=== PATIENT | male | born 1975 | race Caucasian/White ===

== ENCOUNTER 2016-12-19 09:45 | Emergency (ER) | payer OTHER ==
--- NOTE | 2016-12-19 11:01 | DIAGNOSTIC IMAGING REPORT ---
PROCEDURE: XR ANKLE 3 OR 4 VIEWS - RIGHT INDICATION: TRAUMA/INJURY TECHNIQUE: Four views. COMPARISON: None. FINDINGS: There is marked soft tissue swelling over the lateral malleolus. Osseous structures and joint spaces are normal. No evidence of fracture IMPRESSION: 1. Marked soft tissue swelling. 2. Otherwise negative right ankle.
--- NOTE | 2016-12-19 11:37 | ED ORDER SUMMARY ---
..... Patient: BETSY GUPTA OrderSheet [facility] VisitID: [id number] [address] [place] [address] 41y, M Registration Date/Time: 12/19/2016 ORDER SHEET Weight: 98.8 kg (stated) Allergies: No Known Drug Allergy GENERAL ORDERS: Ankle 3 or 4V Right Urgent (10:13 12/19/2016 Nisha Richardson verbal order read back to Lorraine CORNELIUS) (Ack 10:19 Tosin) (11:42 Carrie Higgins.NKinza) Splint (LE) (Right) (Air Splint) (11:23 12/19/2016 Lorraine CORNELIUS) (11:44 PWeiler ER Tech1) Crutches (11:24 12/19/2016 Lorraine CORNELIUS) (11:44 PWeiler ER Tech1) MEDICATION ORDERS: Naprosyn PO 500 mg (NOW) (11:36 12/19/2016 Lorraine CORNELIUS) (11:54 Carrie R.NKinza) IV FLUIDS: ORDER SHEET NOTES: [Electronically signed by Radha Manzo MD (23:48 12/20/2016)] [Electronically signed by John Emery R.N. (07:05 12/21/2016)] [Electronically locked/signed by John Emery R.N. (07:05 12/21/2016)]
--- NOTE | 2016-12-19 11:37 | ED NURSING NOTES ---
Clinical Report - Nurses [facility] [place] [address] 12/19/2016 9:54 [id number] Triage time 10:Dec 19 2016. Acuity: LEVEL 3. Chief Complaint: INJURY TO RIGHT ANKLE. Alert. ALEXANDER COMA SCORE: Alexander Coma Scale: 15- eyes open spontaneously (4); best verbal response- oriented x 4 (5); best motor response- obeys commands (6). --10:10 John Emery R.N. 10:01 12/19/16. BP: 127/95. HR: 74. RR: 16. O2 saturation: 98%. Temp: 98.7 F. Pain level now: 12/20. --10:10 John Emery R.N. Weight: 98.8 kg stated. Height/Length: 73 inches Per Patient. BMI: 28.7. --10:05 John Emery R.N. Medications None. --07:05 John Emery R.N. Allergies No Known Drug Allergy. --07:05 John Emery R.N. History Arrived by private vehicle. Historian: patient. Accompanied by family. Primary physician (Cpt. Steffanie). ( (R) Ankle pain/trauma. Pt states that he was jogging and looked around and in so doing, twisted his ankle.). The patient has had trouble walking. PAST MEDICAL HX: Tetanus status: up-to-date. Immunizations: up-to-date. SOCIAL HX: Never smoker. No alcohol use or drug use. No infectious disease exposure. ABUSE ASSESSMENT: No report of abuse. FALL RISK ASSESSMENT: Fall risk assessment completed. No fall risk identified. NUTRITIONAL RISK ASSESSMENT: The nutritional risk assessment revealed no deficiencies. LEARNING NEEDS ASSESSMENT: The learning needs assessment revealed no barriers. SKIN INTEGRITY ASSESSMENT: Skin integrity risk assessment completed. No skin integrity risk identified. --10:10 John Emery R.N. PROBLEMS: no known problems. ADDITIONAL SURGERIES: The following entry was struck by Radha Manzo MD, 23:45 Reason - Misspelled <<STRICKEN ENTRY-- Varicele. --23:44 Radha Manzo MD --END STRIKE>>. Interventions ID band on patient. To treatment room. --10:10 John Emery R.N. PHYSICAL ASSESSMENT To room via wheelchair. GENERAL / NEURO / PSYCH: Oriented X 4. Appears in pain. EXTREMITIES: Limited ROM present. Capillary refill is less than 2 seconds in the extremities. Right ankle: tenderness and swelling. SKIN: Skin intact. Skin is warm and dry. --11:46 John Emery R.N. NURSING PROGRESS NOTES Cold pack applied to the right ankle. Patient identifiers checked. Call light placed in reach. Side rails up. Bed placed in lowest position. Brakes of bed on. Patient ready for evaluation- chart flagged and ED physician notified. --10:11 John Emery R.N. Stirrup air lower extremity splint applied to right ankle by tech. Distal pulses intact, sensation intact and motor within normal limits. --11:47 Wei Lira ER Tech1 11:45 12/19/2016 Naprosyn (Naproxen) PO Tablets 500 mg given. Allergies verified and confirmed 5 rights. --11:54 Saw Garcia R.N. 10:45 12/19/16. BP: 124/77. HR: 68. RR: 16. O2 saturation: 99% on room air. --11:59 Saw Garcia R.N. DISPOSITION / DISCHARGE Departure time: 1150. Condition at departure: unchanged and stable. No learning barriers present. Discharge instructions provided and reviewed with the patient. Reviewed warnings. Reviewed medication(s). Treatments reviewed. Patient verbalized understanding. Written instructions provided in [place]. The patient was discharged by the physician. He was discharged home and accompanied by poultry processor. He left the Emergency Department on crutches and via private vehicle. Kiln Charger driving. --11:57 Saw Garcia R.N. 11:15 12/19/16. BP: 134/90. HR: 66. RR: 16. O2 saturation: 100% on room air. Temp: 98.7 F (oral). Pain level now: 10/20. --11:57 Saw Garcia R.N. Locked/Released at 12/21/2016 7:05 by John Emery R.N.
--- NOTE | 2016-12-19 11:37 | ED CLINICAL REPORT ---
Clinical Report - Physicians/Mid Levels [facility] [address] [place] [address] 12/19/2016 9:54 [id number] Time Seen: 10:29. Arrived- By private vehicle. Historian- patient. HISTORY OF PRESENT ILLNESS Chief Complaint: Injury to the right ankle. The injury happened today. Occurred at work. The patient sustained a twisting injury. Patient is experiencing moderate pain. No other injury. REVIEW OF SYSTEMS The patient complains of pain on weight bearing. He has had swelling. No tingling, weakness, numbness, suspected foreign body or skin laceration. All systems otherwise negative, except as recorded above. PAST HISTORY Problems: no known problems. Additional Surgeries: Varicocele. SOCIAL HISTORY Never smoker. No alcohol use or drug use. ADDITIONAL NOTES The nursing notes have been reviewed. PHYSICAL EXAM Vital Signs: 12/19/2016 10:01 BP: 127/95. HR: 74. RR: 16. O2 saturation: 98%. Temp: 98.7 F. Pain level now: 710. Have been reviewed. Appearance: Alert. Oriented X3. No acute distress. Head: Head atraumatic. Eyes: Pupils equal, round and reactive to light. Eyes normal inspection. ENT: Nose normal. Neck: Normal inspection. CVS: Pulses normal. Respiratory: No respiratory distress. Back: ROM normal. Skin: Skin intact. Skin warm and dry. Extremities: Right ankle: mild tenderness and moderate swelling localized to the lateral ligaments. Limited ROM secondary to pain (diminished inversion and eversion). Neurovascular intact distally. No ligamentous laxity present. No joint effusion. No erythema, laceration, abrasion, ecchymosis or puncture wound. No foreign body or deformity. No foot injury. Foot and ankle exam otherwise negative. Extremities otherwise negative. Gait: Gait not tested due to pain. Neuro, Vascular and Tendons: Vascular status intact. Sensation intact. Motor intact. Tendon function intact. Neuro: No motor deficit. No sensory deficit. (grossly oriented.). LABS, X-RAYS, AND EKG Rt Ankle X-ray: No fracture. Normal alignment. No bony lesion, air in the soft tissue or foreign body. Joint spaces normal. Soft tissue swelling. Views: 3 view ankle series. Technique: good. The X-rays were independently viewed by me, interpreted by the radiologist and contemporaneously by me and discussed with the radiologist. Prior films were not available for comparison. Pulse Oximetry: 12/19/2016 10:01 O2 saturation: 98%. (FIO2 - room air). Interpretation: normal. PROGRESS AND PROCEDURES Splint Application: Air splint applied to right ankle. Splint applied by tech with direct supervision by me and the ED physician. Reassessed extremity following splint application. Neurovascular intact. Course of Care: Patient is given a dose of naproxen in the emergency department. X-ray of the right ankle was performed and found to be negative. Patient counseled in person regarding the patient's stable condition, test results, diagnosis and need for follow-up. Concerns were addressed. Old medical records reviewed. Disposition: Discharged. Condition: stable. CLINICAL IMPRESSION Sprain of the tibiofibular ligament of the right ankle. INSTRUCTIONS Apply ice for 20 minutes three times a day as needed and until better. Don't apply ice directly to skin and don't use while asleep. Use crutches as needed and until better. Wear air splint until better. You may walk and bear weight as tolerated (With restrictions: no running, weighted activities on ankle (front squats, back squats, deadlifts, etc), for 4 weeks or until symptom-free.). Warnings: GENERAL WARNINGS: Return or contact your physician immediately if your condition worsens or changes unexpectedly, if not improving as expected, or if other problems arise. Prescription Medications: Naprosyn 500 mg: take 1 orally every 12 hours as needed for pain, stiffness or swelling. Dispense thirty (30). No refills. Substitution is permissible. Follow-up: Follow up with your doctor in three weeks if not better. Understanding of the discharge instructions verbalized by patient. (Electronically signed by Radha Manzo MD 12/20/2016 23:48)
--- NOTE | 2016-12-19 11:37 | ED ORDER SUMMARY ---
..... Patient: BETSY GUPTA OrderSheet [facility] VisitID: [id number] [address] [place] [address] 41y, M Registration Date/Time: 12/19/2016 ORDER SHEET Weight: 98.8 kg (stated) Allergies: No Known Drug Allergy GENERAL ORDERS: Ankle 3 or 4V Right Urgent (10:13 12/19/2016 Nisha Richardson verbal order read back to Lorraine CORNELIUS) (Ack 10:19 Tosin) (11:42 Carrie Higgins.NKinza) Splint (LE) (Right) (Air Splint) (11:23 12/19/2016 Lorraine CORNELIUS) (11:44 PWeiler ER Tech1) Crutches (11:24 12/19/2016 Lorraine CORNELIUS) (11:44 PWeiler ER Tech1) MEDICATION ORDERS: Naprosyn PO 500 mg (NOW) (11:36 12/19/2016 Lorraine CORNELIUS) (11:54 Carrie R.NKinza) IV FLUIDS: ORDER SHEET NOTES: [Electronically signed by Radha Manzo MD (23:48 12/20/2016)] [Electronically signed by John Emery R.N. (07:05 12/21/2016)] [Electronically locked/signed by John Emery R.N. (07:05 12/21/2016)]
--- NOTE | 2016-12-19 11:37 | ED NURSING NOTES ---
Clinical Report - Nurses [facility] [place] [address] 12/19/2016 9:54 [id number] TRI[facility] Triage time 10:Dec 19 2016. Acuity: LEVEL 3. Chief Complaint: INJURY TO RIGHT ANKLE. Alert. ALEXANDER COMA SCORE: Alexander Coma Scale: 15- eyes open spontaneously (4); best verbal response- oriented x 4 (5); best motor response- obeys commands (6). --10:10 John Emery R.N. 10:01 12/19/16. BP: 127/95. HR: 74. RR: 16. O2 saturation: 98%. Temp: 98.7 F. Pain level now: 12/20. --10:10 John Emery R.N. Weight: 98.8 kg stated. Height/Length: 73 inches Per Patient. BMI: 28.7. --10:05 John Emery R.N. Medications None. --07:05 John Emery R.N. Allergies No Known Drug Allergy. --07:05 John Emery R.N. History Arrived by private vehicle. Historian: patient. Accompanied by family. Primary physician (Cpt. Steffanie). ( (R) Ankle pain/trauma. Pt states that he was jogging and looked around and in so doing, twisted his ankle.). The patient has had trouble walking. PAST MEDICAL HX: Tetanus status: up-to-date. Immunizations: up-to-date. SOCIAL HX: Never smoker. No alcohol use or drug use. No infectious disease exposure. ABUSE ASSESSMENT: No report of abuse. FALL RISK ASSESSMENT: Fall risk assessment completed. No fall risk identified. NUTRITIONAL RISK ASSESSMENT: The nutritional risk assessment revealed no deficiencies. LEARNING NEEDS ASSESSMENT: The learning needs assessment revealed no barriers. SKIN INTEGRITY ASSESSMENT: Skin integrity risk assessment completed. No skin integrity risk identified. --10:10 John Emery R.N. PROBLEMS: no known problems. ADDITIONAL SURGERIES: The following entry was struck by Radha Manzo MD, 23:45 Reason - Misspelled <<STRICKEN ENTRY-- Varicele. --23:44 Radha Manzo MD --END STRIKE>>. Interventions ID band on patient. To treatment room. --10:10 John Emery R.N. PHYSICAL ASSESSMENT To room via wheelchair. GENERAL / NEURO / PSYCH: Oriented X 4. Appears in pain. EXTREMITIES: Limited ROM present. Capillary refill is less than 2 seconds in the extremities. Right ankle: tenderness and swelling. SKIN: Skin intact. Skin is warm and dry. --11:46 John Emery R.N. NURSING PROGRESS NOTES Cold pack applied to the right ankle. Patient identifiers checked. Call light placed in reach. Side rails up. Bed placed in lowest position. Brakes of bed on. Patient ready for evaluation- chart flagged and ED physician notified. --10:11 John Emery R.N. Stirrup air lower extremity splint applied to right ankle by tech. Distal pulses intact, sensation intact and motor within normal limits. --11:47 Wei Lira ER Tech1 11:45 12/19/2016 Naprosyn (Naproxen) PO Tablets 500 mg given. Allergies verified and confirmed 5 rights. --11:54 Saw Garcia R.N. 10:45 12/19/16. BP: 124/77. HR: 68. RR: 16. O2 saturation: 99% on room air. --11:59 Saw Garcia R.N. DISPOSITION / DISCHARGE Departure time: 1150. Condition at departure: unchanged and stable. No learning barriers present. Discharge instructions provided and reviewed with the patient. Reviewed warnings. Reviewed medication(s). Treatments reviewed. Patient verbalized understanding. Written instructions provided in [place]. The patient was discharged by the physician. He was discharged home and accompanied by branch service associate. He left the Emergency Department on crutches and via private vehicle. [employer] D[employer] driving. --11:57 Saw Garcia R.N. 11:15 12/19/16. BP: 134/90. HR: 66. RR: 16. O2 saturation: 100% on room air. Temp: 98.7 F (oral). Pain level now: 10/20. --11:57 Saw Garcia R.N. Locked/Released at 12/21/2016 7:05 by John Emery R.N.
--- NOTE | 2016-12-21 07:05 | ED DISCHARGE INSTRUCTIONS ---
Patient: BETSY GUPTA General Instructions [facility] VisitID: [id number] [place] [address] 41y, M Registration Date/Time: 12/19/2016 Sprain of the tibiofibular ligament of the right ankle. INSTRUCTIONS Apply ice for 20 minutes three times a day as needed and until better. Don't apply ice directly to skin and don't use while asleep. Use crutches as needed and until better. Wear air splint until better. You may walk and bear weight as tolerated (With restrictions: no running, weighted activities on ankle (front squats, back squats, deadlifts, etc), for 4 weeks or until symptom-free.). Warnings: GENERAL WARNINGS: Return or contact your physician immediately if your condition worsens or changes unexpectedly, if not improving as expected, or if other problems arise. Prescription Medications: Naprosyn 500 mg: take 1 orally every 12 hours as needed for pain, stiffness or swelling. Dispense thirty (30). No refills. Substitution is permissible. Follow-up: Follow up with your doctor in three weeks if not better. Understanding of the discharge instructions verbalized by patient. ADDITIONAL INFORMATION Sprain, Ankle,With X-Ray A sprain is an injury to the ligaments or capsule that holds a joint together. There are no broken bones. Most sprains take from four to six weeks to heal. If the ligament is completely torn (severe sprain), it can take several months to recover. Mild to moderate sprains may be treated with an elastic wrap or an in-shoe splint to provide support and prevent re-injury. A mild sprain may not require any additional support. A severe sprain may require surgery to repair. Home care The following guidelines will help you care for your injury at home: Stay off the injured leg as much as possible until you can walk on it without pain. If you have a lot of pain with walking, crutches or a walker may be prescribed. (These can be rented or purchased at many pharmacies and surgical or orthopedic supply stores). Follow your doctor's advice regarding when to begin bearing weight on that leg. Keep your leg elevated to reduce pain and swelling. When sleeping, place a pillow under the injured leg. When sitting, support the injured leg so it is level with your waist. This is very important during the first 48 hours. Apply an ice pack (ice cubes in a plastic bag, wrapped in a towel) over the injured area for 20 minutes every 12 hours the first day. You can place the ice pack directly over the splint/cast. If you were given a boot, open it to apply the ice pack. Continue with ice packs 34 times a day for the next two days, then as needed for the relief of pain and swelling. You may use acetaminophen or ibuprofen to control pain, unless another pain medicine was prescribed. If you have chronic liver or kidney disease or ever had a stomach ulcer or GI bleeding, talk with your doctor before using these medicines. You may return to sports after healing, when you can run without pain. A sprained ankle is at risk for re-injury during the first six weeks. During that time, protect your ankle with an in-shoe splint that prevents tilting of your ankle from side to side. This is very important if you do active work or play sports during that time. Follow-up care Any X-rays you had today dont show any broken bones, breaks, or fractures. Sometimes fractures dont show up on the first X-ray. Bruises and sprains can sometimes hurt as much as a fracture. These injuries can take time to heal completely. If your symptoms dont improve or they get worse, talk with your doctor. You may need a repeat X-ray. When to seek medical care Get prompt medical attention if any of the following occur: The plaster cast or splint gets wet or soft The fiberglass cast or splint gets wet and does not dry for 24 hours Pain or swelling increases, or redness appears Toes become cold, blue, numb or tingly Re-injure your ankle Crutch Walking Crutch Adjustment Make sure the crutches you use are adjusted to fit you. When you stand, there should be room to fit 2-3 fingers between the top of the crutch and your armpit. Your elbow should be slightly bent when holding the hand group exercise instructor. Crutch Walking: Place the crutches forward 12" in front of and 6" to the side of your feet. Lean your weight forward as you push down on the handgrips. Your weight should be on your hands and yourstrong leg, not your armpits . Let your body swing through, landing on the strong leg. Advance the crutches forward again. The crutch and the injured leg should move together. Going Up Steps: ("Up with the good") With both crutches on the same step as your feet, push down on the handgrips. Balancing with very light pressure on the weak leg, let your hands support your weight as you raise your strong leg onto the next higher step. Transfer all your weight to your strong leg (still bent) as you move the crutches up to the next step alongside the strong leg. With your weight evenly balanced on the two crutches and your strong leg, straighten your strong knee as you raise the weak leg up to the next step. Going Down Steps: ("Down with the bad") With both crutches on the same step as your feet, push down on the handgrips. With your weight evenly balanced on the two crutches and your strong leg, bend your strong knee as you lower the weak leg down to the next step. Let your strong leg support you (still bent) as you move the crutches down alongside the weak leg. Transfer your weight to your hands, balancing with very light pressure on the weak leg as you lower your strong leg alongside your weak leg. Aircast Traditional splints and casts for the foot and ankle protect the injury by preventing movement at the joints. However, many injuries heal better and faster if the injured joint can be moved, while protected at the same time. This is the reason for using an Aircast. There are two common type of AirCasts: 1) Air-Stirrup ankle splint This is often used to treat ankle sprains. It contains padded air cells in a plastic frame that fits into your shoe. This allows you to walk while preventing the ankle joint from rolling in or out causing re-injury. Ankle sprains can take 4-6 weeks to heal. Persons with severe injuries or over age 60 may require more time to heal. During that time, you are prone to re-injury by suddenly twisting your ankle again while the ligaments are still weak. When treating a sprain, the Air-Stirrup splint should be worn whenever walking for at least four weeks, or as long as you continue to have ankle pain. You should continue to wear it at least 6 weeks whenever running, playing sports or any activity where there is increased risk of re-injury. Talk to your doctor for specific advice about the treatment of your condition. 2) SP-Walker boot This is a short boot that provides support and protection to the foot and ankle while allowing you to walk. It contains padded air cells that provide compression and help circulation. It is used for both foot and ankle injuries - both sprains and minor fractures. Talk to your doctor for specific advice about the treatment of your condition. Air-Stirrup and SP-Walker are trademarks of [employer]. For more information about their products, see www.[employer]. You have been given the following additional information: Sprain, Ankle, With X-Ray Crutch Walking Aircast Splint And Boot You may walk and bear weight as tolerated (With restrictions: no running, weighted activities on ankle (front squats, back squats, deadlifts, etc), for 4 weeks or until symptom-free.). (Electronically signed by Radha Manzo MD 12/20/2016 23:48)
--- NOTE | 2016-12-21 07:05 | ED MAR SUMMARY ---
..... Medication Administration Record [facility] [address] [place] [address] Patient: BETSY GUPTA Visit ID: [id number] 41y, M Weight: 98.8 kg Height/Length: 73 in BMI: 28.7 ALLERGIES: No Known Drug Allergy Given 11:45 12/19/2016 Saw Garcia R.N. Medication Administered: NAPROSYN [PO] (NAPROXEN), Dose: 500 mg Tablets PO. Medication Ordered: Naprosyn PO 500 mg (NOW).
--- NOTE | 2016-12-21 07:05 | ED MAR SUMMARY ---
..... Medication Administration Record [address] [place] [address] Patient: BETSY GUPTA Visit ID: [id number] 41y, M Weight: 98.8 kg Height/Length: 73 in BMI: 28.7 ALLERGIES: No Known Drug Allergy Given 11:45 12/19/2016 Saw Garcia R.N. Medication Administered: NAPROSYN [PO] (NAPROXEN), Dose: 500 mg Tablets PO. Medication Ordered: Naprosyn PO 500 mg (NOW).
--- NOTE | 2016-12-21 07:06 | ED MED RECONCILIATION SUMMARY ---
Patient: BETSY GUPTA Medication Reconciliation Report [facility] VisitID: [id number] [address] [place] [address] 41y, M Registration Date/Time: 12/19/2016 Weight: 98.8 kg Height/Length: 73 in. BMI: 28.7 ALLERGIES: No Known Drug Allergy The patient's Home Medications are listed below: NONE. The source(s) of the original Home Medication information: Not obtained. The following Medications were given to the patient in the Emergency Department: Naprosyn [PO] PO 500 mg, administered: 12/19/2016 11:45:00 AM The following Medications were prescribed to the patient: Naprosyn 500 mg: take 1 orally every 12 hours as needed for pain, stiffness or swelling. Dispense thirty (30). No refills. Substitution is permissible. -- Radha Manzo MD
--- NOTE | 2016-12-21 07:06 | ED MED RECONCILIATION SUMMARY ---
Patient: BETSY GUPTA Medication Reconciliation Report [facility] VisitID: [id number] [address] [place] [address] 41y, M Registration Date/Time: 12/19/2016 Weight: 98.8 kg Height/Length: 73 in. BMI: 28.7 ALLERGIES: No Known Drug Allergy The patient's Home Medications are listed below: NONE. The source(s) of the original Home Medication information: Not obtained. The following Medications were given to the patient in the Emergency Department: Naprosyn [PO] PO 500 mg, administered: 12/19/2016 11:45:00 AM The following Medications were prescribed to the patient: Naprosyn 500 mg: take 1 orally every 12 hours as needed for pain, stiffness or swelling. Dispense thirty (30). No refills. Substitution is permissible. -- Radha Manzo MD
== END 2016-12-19 11:50 | disposition home or self-care (01) ==
LOC: ED SRH 09:45
DX: S93.431A Sprain of tibiofibular ligament of right ankle, initial encounter (principal); X50.1XXA Overexertion from prolonged static or awkward postures, initial encounter; Y93.02 Activity, running; Y99.8 Other external cause status; Y92.9 Unspecified place or not applicable